=== PATIENT | female | born 1960 | race Caucasian/White ===

== ENCOUNTER 2022-09-22 10:46 | Emergency (ER) | payer BC ==
[2022-09-22] MEDS ORDERED: Sodium Chloride 0.9% 10 ML Syringe FLUSH PRN (11:12)
[2022-09-22] MEDS ORDERED: Sodium Chloride 0.9% 1,000 ML IV STA (11:12)
[2022-09-22] MEDS ORDERED: Ondansetron 4 MG/2 ML SDV IVPUSH ONE (11:12)
[2022-09-22] MEDS ORDERED: Meclizine 25 MG Tab PO ONE (11:13)
[2022-09-22 12:28] LABS: BASOPHILS ABSOLUTE AUTO 0.03 K/mm3 (0.01-0.08); BASOPHILS PERCENT AUTO 0.4 % (0.1-1.2); EOSINOPHILS ABSOLUTE AUTO 0.08 K/mm3 (0.04-0.36); HEMATOCRIT 42.9 % (34.1-44.9); HEMOGLOBIN 14.5 gm/dl (11.2-15.7); IMMATURE GRAN ABSOLUTE AUTO 0.02 K/mm3 (0.00-0.10); IMMATURE GRAN PERCENT AUTO 0.2 % (<=1.0); LYMPHOCYTES ABSOLUTE AUTO 1.46 K/mm3 (1.18-3.74); LYMPHOCYTES PERCENT AUTO 17.6 % (19.3-51.7); MEAN CORPUSCULAR HEMOGLOBIN 30.1 pg (25.6-32.2); MEAN CORPUSCULAR HGB CONC 33.8 g/dl (32.2-35.5); MEAN CORPUSCULAR VOLUME 89.2 fl (79.4-94.8); MEAN PLATELET VOLUME 11.2 fl (9.4-12.3); MONOCYTES ABSOLUTE AUTO 0.54 K/mm3 (0.24-0.36); MONOCYTES PERCENT AUTO 6.5 % (4.7-12.5); NEUTROPHILS ABSOLUTE AUTO 6.17 K/mm3 (1.56-6.13); NEUTROPHILS PERCENT AUTO 74.3 % (34.0-71.1); PLATELET COUNT,PLT 196 K/mm3 (182-369); RED BLOOD CELL COUNT 4.81 M/mm3 (3.98-5.22)
[2022-09-22 12:52] LABS: ALANINE AMINOTRANSFERASE,ALT 66 U/L (14-59); ALBUMIN 3.6 g/dl (3.4-5.0); ALKALINE PHOSPHATASE 119 U/L (46-116); ASPARTATE AMNIOTRANSFERASE,AST 41 U/L (15-37); BILIRUBIN TOTAL 0.5 mg/dL (0.2-1.0); BLOOD UREA NITROGEN,BUN 9 mg/dL (7-18); BUN/CREATININE RATIO 11.3 (14-18); C-REACTIVE PROTEIN <0.2 mg/dL (<1.0); CALCIUM 9.1 mg/dL (8.5-10.1); CARBON DIOXIDE,CO2 24 mEq/L (21-32); CHLORIDE,CL 104 mEq/L (98-107); CREATININE 0.8 mg/dL (0.55-1.02); EST CRCL DRUG DOSING (CG) 70.01 mL/min; ESTIMATED GFR 84 mL/min (>60); GLUCOSE RANDOM 133 mg/dL (70-99); PROTEIN TOTAL,TP 7.2 g/dl (6.4-8.2); SODIUM,NA 140 mEq/L (136-145)
== END 2022-09-22 13:52 | disposition home or self-care (01) ==
LOC: JD.ED 10:46
DX: R42 Dizziness and giddiness (principal)
CPT/HCPCS: 36415; 70450; 80053; 85025; 86140; 96361; 96374; 99284; A9270; J2405; J7030